=== PATIENT | female | born 1970 | race Caucasian/White ===

== ENCOUNTER 2020-07-24 21:49 | Emergency (ER) | payer BC, SELFPAY ==
[2020-07-24 21:57] VITALS: BP 157/84; PULSE 97; RESP 20; TEMP 36.7; O2SAT 98; BMI 32.2
--- NOTE | 2020-07-24 22:34 | W.ED.FEMALGU ---
HPI - Female Genitourinary General: Chief complaint: Urogenital-Female Stated complaint: LOW BACK PAIN - THINKS KIDNEY Time Seen by Provider: 07/24/20 22:05 History of Present Illness: HPI Narrative: Patient is a 50-year-old female comes to the ED with lower back pain on left side. Patient says symptoms started last night. She is history of chronic lower back pain. She is currently helping take care of her family member and is doing a lot of physical work around the house to help out. She says 2 days ago she was doing some work in the kitchen and thinks she could have potentially tweaked her lower back causing some of this acute pain. Pain is rated a 10 out of 10 and it hurts whenever she moves. She also states she has a history of kidney infections and was concerned that this back pain on the left side could be the start of a kidney infection. Patient was worried potentially about a UTI so took a dose of Azo yesterday and today. She denies any fever, chills, abdominal pain, nausea/vomiting, dysuria or hematuria. Associated symptoms: Deny abdominal pain, headache(s) or nausea Review of Systems Const: Denies: fever(s), chills or fatigue Eyes: Denies: change in vision or eye discomfort ENMT: Denies: throat pain, odynophagia, nasal discharge or nasal congestion Card: Denies: chest pain, palpitations, edema, swelling of feet/ankles, dyspnea on exertion or orthopnea Resp: Denies: dyspnea, productive cough or non-productive cough GI: Denies: abdominal pain, nausea, vomiting, diarrhea, constipation or hematochezia : Denies: flank pain, dysuria or hematuria Musc: Reports: back pain; Denies: neck pain or extremity swelling Skin/Breast: Denies: rash or new lesions Neuro: Denies: headache(s), numbness in extremities or weakness in extremities Physical Exam Const: COMMON NORMALS: no acute distress, patient oriented x3 and alert GENERAL APPEARANCE: cooperative and comfortable HENMT: COMMON NORMALS: normocephalic HEAD & SCALP: normocephalic MOUTH: Normal oral and palatal mucosa present THROAT: posterior oropharynx normal and uvula midline Neck/C-Spine: COMMON NORMALS: supple GENERAL: Yes normal visual inspection Resp: COMMON NORMALS: normal respiratory effort, No retractions, No use of accessory muscles and clear to auscultation bilaterally AUSCULTATION: clear to auscultation bilaterally Cardio: COMMON NORMALS: regular rate, regular rhythm, S1 normal heart sound present, S2 normal heart sound present, No gallops present (Cardio), No clicks present (Cardio), No murmurs present (Cardio) and Peripheral pulses 2+ throughout RATE: regular rate RHYTHM: regular rhythm HEART SOUNDS: S1 normal heart sound present and S2 normal heart sound present PERIPHERAL PULSES: Peripheral pulses 2+ throughout GI: COMMON NORMALS: Normal to inspection, nondistended, normoactive bowel sounds present, Soft to palpation, non-tender and no masses PALPATION: Yes Soft to palpation : COMMON NORMALS: Yes no CVA tenderness BLADDER/KIDNEY EXAM: Yes no CVA tenderness and No CVA tenderness Back/Pelvis: COMMON NORMALS: no CVA tenderness GENERAL BACK: No CVA tenderness LUMBAR SPINE/LOWER BACK: Yes pain with ROM, No lumbar spinal tenderness and Yes paraspinal muscle tenderness Lumbar paraspinal muscle tenderness: left left lumbar paraspinal muscle tenderness: L1 and L2 Extremity: COMMON NORMALS: normal to inspection Neuro: COMMON NORMALS: patient oriented x3 and moves all extremities SENSORIUM/ORIENTATION: Yes alert Skin: GENERAL SKIN EXAM: dry skin Course Vital Signs: Vital signs: Vital Signs Temperature 98.0 F 07/25/20 00:07 Pulse Rate 91 07/25/20 00:07 Respiratory Rate 17 07/25/20 00:07 Blood Pressure 128/91 07/25/20 00:07 Pulse Oximetry 97 07/25/20 00:07 MDM - Female MDM Narrative: Medical decision making narrative: Patient is a 50-year-old female comes to the ED with lower back pain. She has been working around the house helping one of her family members. She has chronic lower back pain but has acute left lower back pain that started yesterday. She is also concerned for possible UTI. Exam findings showed some left paraspinal lumbar muscle tenderness. No other acute exam findings. UA was suggestive for UTI. Patient was given a dose of Toradol and Norflex while here in the ED. Patient diagnosed with UTI and low back pain. She was discharged home with prescription for methocarbamol and Bactrim. Return to ED precautions given. Follow-up with PCP in the next 7 to 10 days. Patient understood and agreed with plan. Lab Data: Attestation: I reviewed the patient's lab results. Labs: Lab Results 07/24/20 Range/Units 22:06 Urine Color Brandon (Yellow) Urine Appearance Clear (CLEAR) Urine pH 5 (5-7) Ur Specific Gravit y 1.020 (1.005-1.030) Urine Protein 3+ H (Negative) Urine Glucose (UA) Norm (Normal) Urine Ketones Negative (Negative) Urine Blood Neg (Negative) Urine Nitrate Positive H (Negative) Urine Bilirubin 3+ H (Negative) Urine Urobilinogen 4+ H (Negative) mg/dL Ur Leukocyte Bibi ase Negative (Negative) Urine RBC 0-4 H (0-2) /hpf Urine WBC 0-4 H (0-5) /hpf Ur Squamous Epith Cells 10-15 H (0-5) /hpf Amorphous Sediment Not Reportable Urine Bacteria Trace (NONE) /hpf Discharge Plan Discharge Patient Disposition: Home Clinical Impression: Urinary tract infection Qualifiers: Urinary tract infection type: acute cystitis Hematuria presence: with hematuria Qualified Code(s): N30.01 - Acute cystitis with hematuria Low back pain Qualifiers: Chronicity: acute Back pain laterality: left Sciatica presence: without sciatica Qualified Code(s): M54.5 - Low back pain Condition: Stable Prescriptions: New Robaxin-750 750 mg tablet 750 mg PO Q8H Qty: 21 RF: 0 Bactrim DS 800-160 mg tablet 1 tab PO BID 5 Days Qty: 10 RF: 0 Discharge Orders: Discharge ED (Routine); Ordered 07/24/20 Ordered By: Kevin Lyman Discharge Diet: Regular Discharge Activity: Increase activity as tolerated Patient Instructions: Urinary Tract Infection in Women (ED), Acute Low Back Pain (ED) Activity Restrictions/Additional Instructions: Follow-up with medical provider as directed in 7 to 10 days for reevaluation. Take medications as prescribed. Take full course of antibiotic as prescribed. Continue to drink plenty of water to help flush out UTI. Robaxin is a muscle relaxer and can cause some drowsiness so take at night before bed. Take your previously prescribed naproxen to help with pain. Return to the ER or your medical provider if condition worsens. Please read and understand discharge instructions. If any questions, please ask. Coding Level of Care Code ED Supervisor [employer] for [facility] Fwd Exam Comprehensive
[2020-07-24 22:55] LABS: Bilirubin Urine 3+ (Negative); Blood Urine Neg (Negative); Glucose Urine UA Norm (Normal); Ketones Urine Negative (Negative); Leukocyte Esterase Urine Negative (Negative); Nitrate Urine Positive (Negative); Protein Urine 3+ (Negative); Urine Appearance Clear (CLEAR); Urine Color Orange (Yellow); Urobilinogen Urine 4+ mg/dL (Negative); pH Urine 5 (5-7)
[2020-07-24 22:56] LABS: Add Urine Culture? No; Bacteria Urine TRACE /hpf; RBC Urine 0-4 /hpf (0-2); WBC Urine 0-4 /hpf (0-5)
[2020-07-25] MEDS: ketorolac 60 mg/2 mL INJ IM (00:05)
[2020-07-25] MEDS: orphenadrine 30 mg/mL Inj 2 mL 60 MG IM (00:05)
[2020-07-25] MEDS: sulfamethoxazole-trimeth DS 160-800 mg Tablet 1 TAB PO (00:06)
[2020-07-25 00:07] VITALS: BP 128/91; PULSE 91; RESP 17; TEMP 36.7; O2SAT 97
== END 2020-07-25 00:08 | disposition home or self-care (01) ==
PROVIDERS: Emergency Provider Physician Assistant
DX: M54.5 Low back pain (principal); N30.01 Acute cystitis with hematuria
CPT/HCPCS: 81001; 96372; 99283; J1885; J2360